=== PATIENT | female | born 1995 | race Caucasian/White ===

== ENCOUNTER 2017-03-16 09:39 | Emergency (ER) | payer BC, SELFPAY ==
[2017-03-16 09:53] VITALS: BP 131/74; PULSE 98; RESP 18; TEMP 37.1; O2SAT 98; BMI 29.0
--- NOTE | 2017-03-16 10:40 | HMH.EDUTC ---
[facility] [place] Clinical Impression: Left acute otitis media Ear discharge blood Qualifiers: Laterality: left Qualified Code(s): H92.22 - Otorrhagia, left ear Disposition: Home, Self-Care Condition on Discharge: Good Instructions: DI for Otitis Media (Middle Ear Infection)-Child Additional Instructions: * Start antibiotic ESVIN and be sure to take as ordered for the FULL length of time although you should start to feel better in 24-48 hours. * Monitor Temp. FU if fever develops. Tylenol/motrin as needed for pain * Encourage fluids, water, Gatorade, PowerAde, pedialyte if /toddler/child * warm compress often helps when placed over ear * sleep elevated * Immediately for new or worsening symptoms. Call Dr. Joy's office TODAY [phone] and schedule an appt. Tell them you were seen in [facility]. Dx ear infection with bloody discharge. Started on antibiotics but need ESVIN follow up with Dr. Joy. Return here immediately for new or worsening symptoms. FOLLOWUP VERY important. Prescriptions: Cefdinir [Omnicef 300mg Capsule] 300 mg PO BID #20 cap Referrals: Liborio Joy MD [Physician] - (Call them TODAY as we discussed) Time of Disposition: 11:06 Medical Decision Making Vital Signs: 03/16/17 09:53 Temperature 98.7 F Temperature Source Temporal Artery Scan Pulse Rate [Left] 98 H Respiratory Rate 18 Blood Pressure [Right Arm] 131/74 Blood Pressure Mean [Right Arm] 93 02 Sat by Pulse Oximetry 98 Oxygen Delivery Method Room Air Orders (Tests/Meds): ED MEDICATIONS Discontinued Medications Generic Name Dose Route Start Last Admin Trade Name Ryan PRN Reason Stop Dose Admin Ceftriaxone Sodium 1 gm 03/16/17 11:01 03/16/17 11:10 Rocephin 1gm Vial IM 03/16/17 11:02 1 gm ONCE ONE Administration Lidocaine HCl 0 ml 03/16/17 11:01 Lidocaine 1% 10ml Mdv IM 03/16/17 11:02 ONCE ONE - Physician Consults Physician Consulted: Dr. Joy's office Time: 10:45 Reason -: Pt condition Comment/Response: Spoke to Brian. He is out of town. Pt can follow up with him next week though - Daquan Inquiry Pt receiving controlled substance: No - Reevaluation(s) Time: 10:28 (pt doing well since injection. No sign of reaction/distress. Plans to berry picker prescription tomorrow and call Dr. Joy's office today. ) [facility] [place] - General Stated complaint: Left Ear pain Time Seen by Provider: 03/16/17 10:40 Mode of Arrival: Ambulatory Source of Information: Patient Limitations: No Limitations Description of Symptoms (Recalled from Triage Doc. by RN): LEFT EAR ACHE LAST NIGHT HEENT Symptoms (Recalled from RN notes): Yes Resp Symptoms (Recalled from RN notes): No Skin Symptoms (Recalled from RN notes): No MS Symptoms (Recalled from RN notes): No Functional Status (Recalled from RN notes): N - History of Present Illness Provider Complaint: c/o sudden onset left ear pain at 2am this morning. I think I have an ear infection . Since waiting to be seen, noticed blood coming from ear. Hearing has been decreased since waking up. No treatment prior to arrival. Has had a mild cold with rhinorrhea x 3-4 days. Hx of allergic rxn to PCNs. reports hx of seizures when younger. Was given PCN and had grand mal type seizure afterwards . At the times, it was attributed to the PCN so she avoids it. Not sure if she has taken cephlosporins but doesn't think it should be a problem. It was more thought to be a mold based thing . - Related Data Previous Rx's Medication Instructions Recorded Cefdinir [Omnicef 300mg Capsule] 300 mg PO BID #20 cap 03/16/17 Allergies Allergy/AdvReac Type Severity Reaction Status Date / Time amoxicillin [AMOXICILLIN] Allergy Mild Unverified 02/28/17 15:10 Penicillins [PENICILLINS] Allergy Mild Verified 03/16/17 11:05 - Worker's Comp Is this a Worker's Comp case?: No [facility] History I have reviewed the patient's past medical history: Yes - *Social History Smoking Statu
--- NOTE | 2017-03-16 10:44 | ED_ITS ---
[facility] [place] Clinical Impression: Left acute otitis media Ear discharge blood Qualifiers: Laterality: left Qualified Code(s): H92.22 - Otorrhagia, left ear Disposition: Home, Self-Care Condition on Discharge: Good Instructions: DI for Otitis Media (Middle Ear Infection)-Child Additional Instructions: * Start antibiotic ESVIN and be sure to take as ordered for the FULL length of time although you should start to feel better in 24-48 hours. * Monitor Temp. FU if fever develops. Tylenol/motrin as needed for pain * Encourage fluids, water, Gatorade, PowerAde, pedialyte if /toddler/ child * warm compress often helps when placed over ear * sleep elevated * Immediately for new or worsening symptoms. Call Dr. Joy's office TODAY [phone] and schedule an appt. Tell them you were seen in [facility]. Dx ear infection with bloody discharge. Started on antibiotics but need ESVIN follow up with Dr. Joy. Return here immediately for new or worsening symptoms. FOLLOWUP VERY important. Prescriptions: Cefdinir [Omnicef 300mg Capsule] 300 mg PO BID #20 cap Referrals: Liborio Joy MD [Physician] - (Call them TODAY as we discussed) Time of Disposition: 11:06 Medical Decision Making Vital Signs: 03/16/17 09:53 Temperature 98.7 F Temperature Source Temporal Artery Scan Pulse Rate [Left] 98 H Respiratory Rate 18 Blood Pressure [Right Arm] 131/74 Blood Pressure Mean [Right Arm] 93 02 Sat by Pulse Oximetry 98 Oxygen Delivery Method Room Air Orders (Tests/Meds): ED MEDICATIONS Discontinued Medications Generic Name Dose Route Start Last Admin Trade Name Ryan PRN Reason Stop Dose Admin Ceftriaxone Sodium 1 gm 03/16/17 11:01 03/16/17 11:10 Rocephin 1gm Vial IM 03/16/17 11:02 1 gm ONCE ONE Administration Lidocaine HCl 0 ml 03/16/17 11:01 Lidocaine 1% 10ml Mdv IM 03/16/17 11:02 ONCE ONE - Physician Consults Physician Consulted: Dr. Joy's office Time: 10:45 Reason -: Pt condition Comment/Response: Spoke to Brian. He is out of town. Pt can follow up with him next week though - Daquan Inquiry Pt receiving controlled substance: No - Reevaluation(s) Time: 10:28 (pt doing well since injection. No sign of reaction/distress. Plans to berry picker prescription tomorrow and call Dr. Joy's office today. ) [facility] [place] - General Stated complaint: Left Ear pain Time Seen by Provider: 03/16/17 10:40 Mode of Arrival: Ambulatory Source of Information: Patient Limitations: No Limitations Description of Symptoms (Recalled from Triage Doc. by RN): LEFT EAR ACHE LAST NIGHT HEENT Symptoms (Recalled from RN notes): Yes Resp Symptoms (Recalled from RN notes): No Skin Symptoms (Recalled from RN notes): No MS Symptoms (Recalled from RN notes): No Functional Status (Recalled from RN notes): N - History of Present Illness Provider Complaint: c/o sudden onset left ear pain at 2am this morning. I think I have an ear infection . Since waiting to be seen, noticed blood coming from ear. Hearing has been decreased since waking up. No treatment prior to arrival. Has had a mild cold with rhinorrhea x 3-4 days. Hx of allergic rxn to PCNs. reports hx of seizures when younger. Was given PCN and had grand mal type seizure afterwards . At the times, it was attributed to the PCN so she avoids it. Not sure if she has taken cephlosporins but doesn't think it should be a probl
== END 2017-03-16 11:29 | disposition home or self-care (01) ==
LOC: UTC 11:26
PROVIDERS: Emergency Provider Nurse Practitioner Family; Family Provider Family Medicine
DX: H92.22 Otorrhagia, left ear (principal); H66.92 Otitis media, unspecified, left ear
CPT/HCPCS: 96372; 99202; 99203

== ENCOUNTER 2020-07-16 19:27 | Emergency (ER) | payer BC, SELFPAY ==
[2020-07-16 19:35] VITALS: BP 138/64; PULSE 72; RESP 15; TEMP 36.7; O2SAT 98; BMI 32.6
--- NOTE | 2020-07-16 19:46 | US_ITS ---
PROCEDURE INFORMATION: Exam: US Pelvis, Transvaginal Exam date and time: 07/16/2020 7:46 PM Age: 25 years old Clinical indication: Pelvic pain; Prior surgery; Patient HX: PT ispost x 8 wks -- PT had iud placed x 2 wks ago-- PT has large clots; Additional info: Vaginal bleeding, check iud location TECHNIQUE: Imaging protocol: Real-time transvaginal pelvic ultrasound with image documentation. Transvaginal imaging was used for better evaluation of the endometrium, adnexa, and/or cervix. COMPARISON: PTV US PELVIS-TRANSVAGINAL ONLY 04/27/2016 12:38 PM FINDINGS: Uterus/cervix: Uterus is enlarged. Within the endometrial canal there is extensive echogenic debris which could reflect blood products and or retained products of conception. Thickened heterogeneous endometrium. IUD is partially seen. Endometrial stripe is normal. Right adnexa: Normal. No mass. Normal ovarian blood flow. 3.1 x 2 x 2.3 cm Left adnexa: Normal. No mass. Normal ovarian blood flow. 1.7 x 4.8 x 2.3 cm. Intraperitoneal space: No free fluid. IMPRESSION: 1. Within the endometrial canal there is extensive echogenic debris which could reflect blood products and or retained products of conception. Thickened heterogeneous endometrium. 2. Ovaries unremarkable. 3. No free fluid.
--- NOTE | 2020-07-16 19:47 | HMH.EDGENADL ---
ED Disposition Clinical Impression: Vaginal bleeding Disposition: Home, Self-Care Condition on Discharge: Good Additional Instructions: Return if you have worsening vaginal bleeding (>1 pad per hour) or any other concerns. Follow up with your HEALTH AND NUTRITION SPECIALIST tomorrow morning or you can follow up with Dr. Blankenship if there are issues. Referrals: Wendy Blankenship MD [Staff Physician] - Provider,MD Evaristo [Primary Care Provider] - - Critical Care Critical Care Time: No Attestation: On 07/16/20, the high probability of a clinically significant, sudden or life threatening deterioration of the following system(s) required my full and direct attention, intervention and personal management. The time I documented below is in addition to time spent performing reported procedures but includes the following listed in this critical care notation. Medical Decision Making - Medical Records Medical records reviewed: Yes: I reviewed the patient's medical records. - Daquan Inquiry Pt receiving controlled substance: No Vital Signs: 07/16/20 19:35 07/16/20 21:33 Temperature 98.1 F 98.2 F Temperature Source Oral Oral Pulse Rate 65 Pulse Rate [Right Brachial] 72 Respiratory Rate 15 18 Blood Pressure 112/74 Blood Pressure [Right Arm] 138/64 Blood Pressure Mean [Right Arm] 88 Blood Pressure Source Automatic Cuff Blood Pressure Source [Right Arm] Automatic Cuff Blood Pressure Position Sitting Blood Pressure Position [Right Arm] Sitting 02 Sat by Pulse Oximetry 98 Oxygen Delivery Method Room Air Room Air - Lab Data Lab Results 07/16/20 19:39: Hgb 12.9, Hct 40.1 07/16/20 19:39: Sodium 138, Potassium 3.9, Chloride 104, Carbon Dioxide 25, Anion Gap 12.9, BUN 12, Creatinine 0.60, Estimated Creat Clear 223, Estimated GFR 120, Est GFR ( Amer) 145, Glucose 100, Calcium 9.4 07/16/20 19:39: Serum HCG, Qual Negative 07/16/20 19:50: Blood Type O Positive, Antibody Screen Negative Result diagrams: 07/16/20 19:39 07/16/20 19:39 Medical Decision Narrative: 25-year-old female presents with vaginal spotting after IUD placement for 2 weeks. She does not appear to be symptomatically anemic at this time and has normal vital signs. She is otherwise in no acute distress nontoxic-appearing. Pelvic exam deferred. Transvaginal ultrasound has been ordered to assess for location of IUD. Hemoglobin as well as type and screen obtained as well. Dr. Brown to follow-up on results and final disposition General Adult HPI - General Chief complaint: Vaginal Bleeding Stated complaint: bleeding from vagina 8 weeks pospartum Time Seen by Provider: 07/16/20 19:30 Mode of Arrival: Family Vehicle Limitations: No Limitations Description of Symptoms (Recalled from ER Triage Doc. by RN): pt had an IUD placed [address] Ly in [facility] following a () 8 WEEKS ago. pt states she had copious amounts of blood clots since placement and while this is normal for her s/p IUD placement (she had one before), she had an episode of gushing of blood when she stood up and bled all over the floor and wants to be evaluated. no current bleeding that she feels. denies dyspnea, denies cp, denies weakness, denies general malaise. - History of Present Illness HPI narrative: 25 year-old female presents with vaginal bleeding after IUD placement 2 weeks ago. She says she has had consistent spotting with the IUD placement however tonight had a big gush of blood. She has pain mostly on the right side as well. In the pelvic area not in her abdomen. No fever no chills no dysuria. No nausea vomiting or diarrhea. She delivered a baby 8 weeks ago G1, P1 with no complications - Related Data Home Medications Medication Instructions Recorded Confirmed buspirone 15 mg tablet PO #60 tab 08/13/18 03/20/19 Previous Rx's Medication Instructions Recorded iafjzjaeblzafld-lqbztunbkgwotkl-FS 10 ml PO Q4-6H PRN 7 Days #118 ml 03/20/19 2 mg-30 m
[2020-07-16 19:48] LABS: Hematocrit 40.1 % (37.0-47.0); Hemoglobin 12.9 g/dL (12.2-16.2)
--- NOTE | 2020-07-16 19:52 | PC.NURSE ---
called for information technology director to come in.
[2020-07-16 19:54] LABS: Chloride 104 mmol/L (98-107); Potassium 3.9 mmoL/L (3.5-5.1); Sodium 138 mmol/L (136-145)
[2020-07-16 19:57] LABS: Anion Gap 12.9 mEq/L (5-15); Blood Urea Nitrogen 12 mg/dl (7-17); Carbon Dioxide 25 mmol/L (22.0-30.0); Creatinine Clearance Estimated 223 mL/min (50-200); Estimated Glomerular Filt Rate 120 ml/min (>60); GFR (African American) 145 ML/MIN (>60)
[2020-07-16 19:58] LABS: Calcium 9.4 mg/dl (8.4-10.2); Glucose 100 mg/dl (74-100)
[2020-07-16 20:04] LABS: HCG Qualitative, Serum Negative (Negative)
--- NOTE | 2020-07-16 20:15 | PC.NURSE ---
to rad via wc
[2020-07-16 21:33] VITALS: BP 112/74; PULSE 65; RESP 18; TEMP 36.8; O2SAT 98
== END 2020-07-16 21:35 | disposition home or self-care (01) ==
PROVIDERS: Emergency Provider Emergency Medicine
DX: N93.9 Abnormal uterine and vaginal bleeding, unspecified (principal); T83.83XA Hemorrhage due to genitourinary prosthetic devices, implants and grafts, initial encounter; F17.210 Nicotine dependence, cigarettes, uncomplicated; F41.9 Anxiety disorder, unspecified; Z88.0 Allergy status to penicillin
CPT/HCPCS: 76830; 80048; 84703; 85014; 85018; 86850; 99282

== ENCOUNTER 2021-04-15 09:06 | Emergency (ER) | payer BC, SELFPAY ==
--- NOTE | 2021-04-15 10:11 | HMH.EDUTC ---
[facility] [place] Clinical Impression: Pharyngitis Qualifiers: Pharyngitis/tonsillitis etiology: unspecified etiology Qualified Code(s): J02.9 - Acute pharyngitis, unspecified Otitis media Qualifiers: Otitis media type: suppurative Chronicity: acute Laterality: bilateral Recurrence: non-recurrent Spontaneous tympanic membrane rupture: without spontaneous rupture Qualified Code(s): H66.003 - Acute suppurative otitis media without spontaneous rupture of ear drum, bilateral Disposition: Home, Self-Care Condition on Discharge: Good Instructions: Middle Ear Infection, How to Instill Ear Drops Additional Instructions: Drink plenty of fluids. Take tylenol or ibuprofen for pain or fever. Take the medications as directed. Follow up with your regular doctor. GO TO THE ER FOR ANY WORSENING SYMPTOMS Prescriptions: Ciprofloxacin HCl/Dexameth [Cipro 0.3%-Dex 0.1% Otic Susp 7.5mL] 2 drops EAR-BOTH BID 7 Days #1 ml Transmission Status: Pending to [facility] methylPREDNISolone [Medrol] 4 mg PO DIRECTED 6 Days #21 packet Transmission Status: Pending to [facility] Cefdinir [Omnicef 300mg Capsule] 300 mg PO BID #20 cap Transmission Status: Pending to [facility] Referrals: Provider,ReferralMD [Primary Care Provider] - Time of Disposition: 10:57 Medical Decision Making - Medical Records Medical records reviewed: No: I reviewed the patient's medical records. - Daquan Inquiry Pt receiving controlled substance: No Vital Signs: 04/15/21 10:19 Temperature 98.7 F Temperature Source Oral Pulse Rate [Left] 80 Respiratory Rate 18 Blood Pressure [Right Arm] 127/80 Blood Pressure Mean [Right Arm] 95 02 Sat by Pulse Oximetry 98 [facility] [place] - General Stated complaint: bilateral ear pain Time Seen by Provider: 04/15/21 10:12 - History of Present Illness Provider Complaint: She c/o bilateral ear pain for the past 2 weeks. She states that has has a lot fo trouble with her ears during the winter anyway, but they started hurting worse yesterday. She denies any fever or chills. She denies significant cough or congestion. - Related Data Home Medications Medication Instructions Recorded Confirmed buspirone 15 mg tablet PO #60 tab 08/13/18 03/20/19 Previous Rx's Medication Instructions Recorded yomiddflythzspm-zmbfxjhfnogestm-UH 10 ml PO Q4-6H PRN 7 Days #118 ml 03/20/19 2 mg-30 mg-10 mg/5 mL oral syrup prednisone 20 mg tablet 20 mg PO BID 5 Days #10 tab 03/20/19 Cefdinir [Omnicef 300mg Capsule] 300 mg PO BID #20 cap 04/15/21 Ciprofloxacin HCl/Dexameth [Cipro 2 drops EAR-BOTH BID 7 Days #1 ml 04/15/21 0.3%-Dex 0.1% Otic Susp 7.5mL] methylPREDNISolone [Medrol] 4 mg PO DIRECTED 6 Days #21 04/15/21 packet Allergies Allergy/AdvReac Type Severity Reaction Status Date / Time amoxicillin [AMOXICILLIN] Allergy Mild Verified 03/20/19 12:39 Penicillins [PENICILLINS] Allergy Mild Verified 03/20/19 12:39 [facility] History - Hepatitis A Screen Attestation statement:: This patient has been screened for Hepatitis A risk factors. I have reviewed the patient's past medical history: Yes Medical History: Reports:: Anxiety, Kidney Stones, Migraine Denies:: Depression, Diabetes Mellitus Type 1, Diabetes Mellitus Type 2 Other Medical History: Reports: Anemia Other Surgeries: Yes: No Previous Surgery Amputation: No Fractures: No - Social History Smoking Status: Current every day smoker Tobacco Type: cigarettes # Packs/Day (cigarettes): 1 Alcohol Intake: never Substance Use Type: denies use Occupational Status: employed Housing: house Household Members: family - Psychiatric History Pschychiatric History:: Reports:: Anxiety Denies:: Depression Family Hx:: Stroke, Heart Attack, Diabetes ROS Obtained: Yes All systems reviewed & no additional complaints - Constitutional Constitutional: Reports as per HPI - Eyes Eyes: Denies eye discharge - ENT
[2021-04-15 10:19] VITALS: BP 127/80; PULSE 80; RESP 18; TEMP 37.1; O2SAT 98; BMI 44.4
[2021-04-15 11:01] VITALS: BP 127/80; PULSE 80; RESP 18; TEMP 37.1
== END 2021-04-15 11:03 | disposition home or self-care (01) ==
PROVIDERS: Emergency Provider Nurse Practitioner Family
DX: H66.003 Acute suppurative otitis media without spontaneous rupture of ear drum, bilateral (principal); J02.9 Acute pharyngitis, unspecified; F41.9 Anxiety disorder, unspecified; G43.709 Chronic migraine without aura, not intractable, without status migrainosus
CPT/HCPCS: 99202; G0463

== ENCOUNTER 2021-06-01 09:09 | Emergency (ER) | payer BC, SELFPAY ==
[2021-06-01 10:30] LABS: UTC Strep Screen (Rapid) Negative (Negative)
[2021-06-01 10:53] VITALS: BP 126/90; PULSE 75; RESP 18; TEMP 36.7; O2SAT 96; BMI 42.7
--- NOTE | 2021-06-01 11:00 | HMH.EDUTC ---
[facility] – [place] Disposition Clinical Impression: Sinusitis Qualifiers: Sinusitis location: unspecified location Chronicity: unspecified Qualified Code(s): J32.9 - Chronic sinusitis, unspecified Disposition: Home, Self-Care Condition on Discharge: Good Instructions: Sinusitis, DI for Sinusitis Additional Instructions: *Monitor Temp, Over the counter Motrin or Tylenol as directed/as needed Tylenol every 4 hours and Motrin every 6 hours (as long as your family doctor has told you that you can take it) for fever or pain. and straight to ER if unable to lower temp less than 101.0 after medication given *Warm salt water gargles may help to soothe the throat *Throat Lozenges *Warm fluids like tea with honey may help to soothe the throat *Sleep elevated *Humidifier/Vaporizer *Flonase 2 sprays in each nostril daily but be aware that it may take 2-3 days before you notice improvement Your throat swab was sent for culture. Those results are typically sent to your primary care. Be sure to follow up in 2-3 days with your family doctor/primary care physician if no improvement so they can review those result and treat if necessary. If you don?t have a primary care doctor, I recommend you get one but in the mean time, you will have to return to a walk in clinic Follow up IMMEDIATELY for new or worsening symptoms or no Noticeable improvement over the next 48-72 hours. 911 for difficulty breathing or swallowing Prescriptions: Fluticasone Propionate [Flonase 50mcg nasal spray 16gm] 1 spr NS DAILY #1 each Transmission Status: Pending to [facility] methylPREDNISolone [Medrol 4mg tab] 4 mg PO DIRECTED #21 tab Transmission Status: Pending to [facility] Azithromycin [Z-Ranjith 250mg Tab] 250 mg PO DIRECTED #6 tab Transmission Status: Pending to [facility] Referrals: Provider,Referral, [Primary Care Provider] - As needed Time of Disposition: 11:03 Medical Decision Making - Daquan Inquiry Pt receiving controlled substance: No Daquan was queried for this patient: No Vital Signs: 06/01/21 10:53 Temperature 98.1 F Temperature Source Oral Pulse Rate [Left] 75 Respiratory Rate 18 Blood Pressure [Right Arm] 126/90 Blood Pressure Mean [Right Arm] 102 02 Sat by Pulse Oximetry 96 - Lab Data Lab results reviewed: Yes: I reviewed the patient's lab results. Lab Results 06/01/21 10:20: Strep Scn Rapid Clinic Negative Orders (Tests/Meds): ORDERS Category Date Time Status Strep Screen Confirmation Stat Micro 06/01/21 10:20 Received [facility] [place] HPI - General Stated complaint: sore throat, runny nose, congestion Time Seen by Provider: 06/01/21 11:00 Mode of Arrival: Ambulatory Source of Information: Patient Limitations: No Limitations Description of Symptoms (Recalled from Triage Doc. by RN): pt c/o congestion, aches, and a sore throat x2 days. HEENT Symptoms (Recalled from RN notes): Yes Resp Symptoms (Recalled from RN notes): No Skin Symptoms (Recalled from RN notes): No MS Symptoms (Recalled from RN notes): No Functional Status (Recalled from RN notes): wnl - History of Present Illness Provider Complaint: Patient states she has been having sinus pain and pressure along with headache, sore throat and pressure like feeling in her ears state that she has been around someone that has had strep throat and she was worried that she may have it too - Related Data Home Medications Medication Instructions Recorded Confirmed buspirone 15 mg tablet PO #60 tab 08/13/18 03/20/19 Previous Rx's Medication Instructions Recorded aetcifwanksgwso-vvqxjvwyzyebghz-PD 10 ml PO Q4-6H PRN 7 Days #118 ml 03/20/19 2 mg-30 mg-10 mg/5 mL oral syrup prednisone 20 mg tablet 20 mg PO BID 5 Days #10 tab 03/20/19 Cefdinir [Omnicef 300mg Capsule] 300 mg PO BID #20 cap 04/15/21 Ciprofloxacin HCl/Dexameth [Cipro 2 drops EAR-BOTH BID 7 Days #1 ml 04/15/21 0.3%-Dex 0.1% Otic Susp 7.5mL] methylPREDNISolone
[2021-06-01 11:06] VITALS: BP 126/90; PULSE 75; RESP 18; TEMP 36.7
== END 2021-06-01 11:16 | disposition home or self-care (01) ==
PROVIDERS: Emergency Provider Nurse Practitioner
DX: J32.9 Chronic sinusitis, unspecified (principal); J02.9 Acute pharyngitis, unspecified; F41.9 Anxiety disorder, unspecified; F17.210 Nicotine dependence, cigarettes, uncomplicated
CPT/HCPCS: 87880; 99212; G0463